=== PATIENT | female | born 1955 | race Caucasian/White ===

== ENCOUNTER 2016-07-25 11:53 | Emergency (ER) | payer MEDICARE ==
--- NOTE | ~2016-07-25 | OR ---
PATIENT'S NAME: DONNA AGUILA [facility] AGE: 61 Y [address] ROOM: [place] [id number] LOCATION: [facility] ADMIT DATE: 07/25/2016 OR/Procedure Report DISCHARGE DATE: 07/25/2016 FAMILY PHYSICIAN: , NANCY ATTENDING PHYSICIAN: Scott Alexander SURGEON: Scott Alexander DO MEAT APPRENTICE: DATE OF PROCEDURE: 07/25/2016 DESCRIPTION OF PROCEDURE: Please see Dr. Alexander's dictation regarding history and physical. The patient has a 3.3 cm laceration to the left eyebrow area. It was anesthetized with Marcaine with epinephrine as the patient states that lidocaine does not work on her. She was able to get the anesthesia effect and able to clean it up. It was cleansed well with saline and Betadine and then closed with 5-0 Ethilon x10 stitches. The patient tolerated the procedure well. The area was cleansed afterwards, and Neosporin and Band-Aid were applied. The patient remained awake and alert throughout the procedure, was talkative, and did not have any dizziness or feelings of lightheadedness after the procedure was completed. GINETTE NEAL APRN FOR DO LOBITO DOUGLAS/modl /[id number] d: 07/25/16 1628 t: 07/28/16 1434, OPERATIVE SUMMARY
--- NOTE | ~2016-07-25 | ER ---
PATIENT'S NAME: DONNA AGUILA [facility] AGE: 61 Y [address] ROOM: [place] [address] LOCATION: [facility] ADMIT DATE: 07/25/2016 ER/Outpatient Report DISCHARGE DATE: 07/25/2016 FAMILY PHYSICIAN: PHYSICIAN, NO ATTENDING PHYSICIAN: Scott Alexander TIME OF ARRIVAL: 1153 hours. TIME OF EVALUATION: 1153 hours. CHIEF COMPLAINT: Fall and head injury. HISTORY OF PRESENT ILLNESS: The patient is a 61-year-old female, who presents to the emergency department today with a chief complaint of fall and head injury. She reports that she was stepping off a curb when she thought she was on a handicap ramp and tripped and fell instead. She reports no loss of consciousness. She did hit the left side of her head. Denies any fevers or chills. No nausea or vomiting. No diarrhea or constipation. She does have mild headache. Dizziness. Pain is currently 8/10 in severity. PAST MEDICAL HISTORY: Obstructive sleep apnea, PTSD, anxiety, cue-sjwcpyx-cfmlhrcxk diabetes, asthma, arthritis. PAST SURGICAL HISTORY: None reported. SOCIAL HISTORY: The patient denies any tobacco, alcohol, or illicit drug use. ALLERGIES: TO ADHESIVES LATEX, MORPHINE. MEDICATIONS: Please see list. PRIMARY CARE DOCTOR: None. REVIEW OF SYSTEMS: All systems are reviewed by myself and are negative with the exception of those discussed in HPI and past medical history. PHYSICAL EXAMINATION: PATIENT'S NAME: DONNA AGUILA [facility] AGE: 61 Y [address] ROOM: [place] [address] LOCATION: [facility] ADMIT DATE: 07/25/2016 ER/Outpatient Report DISCHARGE DATE: 07/25/2016 FAMILY PHYSICIAN: PHYSICIAN, NO ATTENDING PHYSICIAN: Scott Alexander VITAL SIGNS: Blood pressure 115/59, pulse 64, respiratory rate 20, temperature 98.7, oxygen saturation 98% on room air. GENERAL: The patient is a 61-year-old female, appears of stated age, in mild acute distress. HEENT: Head normocephalic, does have evidence of trauma with laceration on the left side of her eyebrow. There is no skull depression noted. Pupils are equal, round, and reactive to light and accommodation. Extraocular motions are intact. Nares are patent bilaterally. TMs are clear. Oropharynx is clear. NECK: Supple. There is no nuchal rigidity. No midline tenderness to palpation. CARDIOVASCULAR: Regular rate and rhythm. No murmurs, rubs, or gallops. LUNGS: Clear to auscultation bilaterally. No wheezes, rales, or rhonchi. ABDOMEN: Soft, nontender, and nondistended. No rebound, rigidity, or guarding. MUSCULOSKELETAL: The patient moves all 4 extremities. No bony tenderness to palpation noted. SKIN: Warm and dry. The patient does have a 3.3 cm laceration over the left eyebrow, it is gaping up. LABORATORY DATA AND X-RAYS: CT scan of the brain is obtained shows no acute intracranial process. There is a small left periorbital laceration. There is a sclerotic calvarium of uncertain significance. IMPRESSION: 1. A 3.0-cm laceration to the left eyebrow. 2. Mechanical fall. 3. Sclerotic calvarium, uncertain significance. 4. Initial visit. EMERGENCY DEPARTMENT COURSE: The patient was brought back to the examination room. Seen and evaluated by myself. CT imaging is obtained as described above. I have discussed results with the patient. I have discussed suture repair of the wound with the patient. The patient does wish to proceed. Teresa Belle, nurse practitioner, has repaired the facial wound under my supervision. I have discussed suture removal in 5 days. I have discussed head injury precautions with the family. I have discussed return to care instructions including worsening symptoms or other concerns, return to the emergency department as soon as possible. The patient is agreeable, family is agreeable without further questions at this time. DISPOSITION: The patient is discharged to home in good condition. PATIENT'S NAME: DONNA AGUILA [facility] AGE: 61 Y [address] ROOM: [place] [address] LOCATION: [facility] ADMIT DATE: 07/25/2016 ER/Outpatient Report DISCHARGE DATE: 07/25/2016 FAMILY PHYSICIAN: PHYSICIAN, NO ATTENDING PHYSICIAN: Scott Alexander DO BRIANNA DOUGLAS/modl /[id number] d: 07/25/16 1455 t: 07/27/16 0835, OUTPATIENT REPORT
== END 2016-07-25 13:48 | disposition disaster alternative care site (69) ==
LOC: GACC 11:53
PROC: 0HQ1XZZ Repair Face Skin, External Approach (ICD-10-PCS; principal; 2016-07-25)
DX: S01.112A Laceration without foreign body of left eyelid and periocular area, initial encounter (principal); F41.9 Anxiety disorder, unspecified; F43.10 Post-traumatic stress disorder, unspecified; E11.9 Type 2 diabetes mellitus without complications; J45.909 Unspecified asthma, uncomplicated; G35 Multiple sclerosis; G47.33 Obstructive sleep apnea (adult) (pediatric); M19.90 Unspecified osteoarthritis, unspecified site; Z91.040 Latex allergy status; Z88.5 Allergy status to narcotic agent; Z79.899 Other long term (current) drug therapy; Z79.1 Long term (current) use of non-steroidal anti-inflammatories (NSAID); W01.0XXA Fall on same level from slipping, tripping and stumbling without subsequent striking against object, initial encounter

== ENCOUNTER → 2016-07-25 | Outpatient (CLI) | payer MEDICARE | END | disposition disaster alternative care site (69) | LOC: GAMB 11:32 | DX: S09.93XA Unspecified injury of face, initial encounter (principal); S01.81XA Laceration without foreign body of other part of head, initial encounter; R58 Hemorrhage, not elsewhere classified; Z88.5 Allergy status to narcotic agent; Z79.84 Long term (current) use of oral hypoglycemic drugs; W01.0XXA Fall on same level from slipping, tripping and stumbling without subsequent striking against object, initial encounter | CPT/HCPCS: A0425; A0429 ==